=== PATIENT | male | born 1980 | race Caucasian/White ===

== ENCOUNTER 2018-10-03 21:22 | Emergency (ER) | payer BC ==
[~2018-10-03] VITALS: Ht 172.7 cm; Wt 63.5 kg
--- NOTE | 2018-10-03 21:38 | NUR ---
Dr. Burgess at bedside for MSE.
[2018-10-03] MEDS ORDERED: IBUPROFEN 800 MG TABLET PO ONE (21:45)
--- NOTE | 2018-10-03 21:45 | NUR ---
Xray at bedside.
[2018-10-03] MEDS ORDERED: IBUPROFEN 800 MG TABLET ONE (21:52)
--- NOTE | 2018-10-03 22:10 | NUR ---
Called [facility] states will be here in 10 min for pickup.
--- NOTE | 2018-10-03 22:13 | NUR ---
Patient discharged to home in stable conditon. Written and verbal after care instructions given. Patient verbalizes understanding of instructions. Pt ambulated out of ER with steady gait, no acute signs of distress, VSS, all belongings taken.
[2018-10-03 22:15] VITALS: BP 110/70
[2018-10-03] MEDS ORDERED: LIDOCAINE 5% PATCH TD ONE (22:15)
== END 2018-10-03 22:20 | disposition home or self-care (01) ==
LOC: ER 21:25
DX: S23.8XXA Sprain of other specified parts of thorax, initial encounter (principal); J40 Bronchitis, not specified as acute or chronic; F17.200 Nicotine dependence, unspecified, uncomplicated; F14.10 Cocaine abuse, uncomplicated; X58.XXXA Exposure to other specified factors, initial encounter; Y93.89 Activity, other specified; Y92.89 Other specified places as the place of occurrence of the external cause; Y99.8 Other external cause status
CPT/HCPCS: 71045; 93005; A4663

== ENCOUNTER 2018-10-06 19:05 | Emergency (ER) | payer BC ==
[~2018-10-06] VITALS: Ht 172.7 cm; Wt 65.8 kg
--- NOTE | 2018-10-06 21:39 | NUR ---
Dr. Burgess at bedside for MSE.
[2018-10-06] MEDS ORDERED: LIDOCAINE 5% PATCH TD ONE ×2 (21:45→21:50)
[2018-10-06] MEDS ORDERED: OXYCODONE/APAP 5-325 MG TABLET PO ONE (21:45)
[2018-10-06] MEDS ORDERED: OXYCODONE/APAP 5-325 MG TABLET ONE (21:50)
[2018-10-06 21:55] VITALS: BP 114/78
== END 2018-10-06 21:56 | disposition home or self-care (01) ==
LOC: ER 19:05
DX: S23.8XXA Sprain of other specified parts of thorax, initial encounter (principal); S33.5XXA Sprain of ligaments of lumbar spine, initial encounter; J40 Bronchitis, not specified as acute or chronic; F17.200 Nicotine dependence, unspecified, uncomplicated; F14.10 Cocaine abuse, uncomplicated; X58.XXXA Exposure to other specified factors, initial encounter; Y93.89 Activity, other specified; Y92.89 Other specified places as the place of occurrence of the external cause; Y99.8 Other external cause status
CPT/HCPCS: A4663